=== PATIENT | male | born 1950 | race Caucasian/White ===

== ENCOUNTER 2017-01-04 17:15 | Emergency (ER) | payer BC ==
[2017-01-04 17:46] LABS: BASO % 0.8 % (0-6); EOS % 5.1 % (0-6); GRAN % 56.4 % (47-80); HEMATOCRIT 41.5 % (42.0-52.0); HEMOGLOBIN 13.4 gm/dl (14.0-18.0); LYMPH % 26.6 % (16-45); MEAN CELL VOLUME 89.8 fl (81-97); MEAN CORPUSCULAR HGB CONC 32.3 g/dl (32-36); MEAN PLATELET VOLUME 11.1 fl (7.4-10.4); MONO % 11.1 % (0-9); PLATELET COUNT 250 K/uL (130-400); RED BLOOD COUNT 4.62 M/uL (4.40-5.70); RED CELL DISTRIBUTION WIDTH 13.7 % (11.5-14.5); WHITE BLOOD COUNT W/O DIFF 7.2 K/uL (4.2-12.2)
[2017-01-04 17:58] LABS: ANION GAP 7.4 (7-16); BLOOD UREA NITROGEN 17 mg/dL (9-20); CARBON DIOXIDE 24.6 mmol/L (22-30); EST GLOMERULAR FILTRATION RATE > 60 ml/min; GLUCOSE,RANDOM 86 mg/dL (70-110)
--- NOTE | 2017-01-04 18:07 | Emergency Department Record ---
History of Present Illness - General Chief Complaint: Trauma Stated Complaint: TRAUMA LAC Time Seen by Provider: 01/04/17 17:24 Source: Patient Mode of Arrival: Wheelchair Limitations: No limitations - History of Present Illness Initial Comments: pt was working on a garage door when the spring broke and snapped back hitting him in the lower l chest. pt is on blood thinner MD Complaint: Injury Onset/Timin -: Minutes(s) Location: Chest Consistency: Constant Context: Machine or Tool Related Injury Associated Symptoms: Denies other symptoms Treatments Prior to Arrival: Other - Related Data Home Medications Medication Instructions Recorded Confirmed Last Taken Albuterol Sulfate [Ventolin Hfa] 1 - 2 puff IH .EVERY 4-6 HRS PRN 01/04/1701/0401/04/17 Aspirin 325 mg PO DAILY 01/04/17 01/04/17 01/04/17 Atenolol [Tenormin] 50 mg PO DAILY 01/04/17 01/04/17 01/04/17 Atorvastatin Calcium [Lipitor] 20 mg PO DAILY 01/04/17 01/04/17 01/04/17 Bupropion HCl [Wellbutrin Xl] 150 mg PO DAILY 01/04/17 01/04/17 01/04/17 Clopidogrel Bisulfate [Plavix] 75 mg PO DAILY 01/04/17 01/04/17 01/04/17 Levothyroxine Sodium [Synthroid] 125 mcg PO DAILY 01/04/17 01/04/17 01/04/17 Mometasone/Formoterol [Dulera 200 8.8 gm IH ASDIR 01/04/17 01/04/17 01/04/17 Mcg/5 Mcg Inhaler] Quetiapine Fumarate [Seroquel] 100 mg PO QHS 01/04/17 01/04/17 01/03/17 Allergies Allergy/AdvReac Type Severity Reaction Status Date / Time No Known Drug Allergies Allergy Verified 01/04/17 17:38 Travel Screening - Travel/Exposure Within Last 30 Days Have you traveled within the last 30 days?: No - Travel/Exposure Within Last Year Have you traveled outside the [place] in the last year?: No - Additonal Travel Details Have you been exposed to anyone with a communicable illness?: No - Travel Symptoms Symptom Screening: None Review of Systems Reviewed: No additional complaints except as noted below Constitutional: Reports: As per HPI. Denies: Chills, Fever, Malaise, Night sweats, Weakness, Weight change Eyes: Reports: As per HPI. Denies: Eye discharge, Eye pain, Photophobia, Vision change ENT: Reports: As per HPI. Denies: Congestion, Dental pain, Ear pain, Epistaxis , Hearing loss, Throat pain Respiratory: Reports: As per HPI. Denies: Cough, Dyspnea, Hemoptysis, Stridor, Wheezes Cardiovascular: Reports: As per HPI. Denies: Arrhythmia, Chest pain, Dyspnea on exertion, Edema, Murmurs, Orthopnea, Palpitations, Paroxysmal nocturnal dyspnea, Rheumatic Fever, Syncope Endocrine: Reports: As per HPI. Denies: Fatigue, Heat or cold intolerance, Polydipsia, Polyuria Gastrointestinal: Reports: As per HPI. Denies: Abdominal pain, Constipation, Diarrhea, Hematemesis, Hematochezia, Melena, Nausea, Vomiting Genitourinary: Reports: As per HPI. Denies: Dysuria, Frequency, Hematuria, Incontinence, Retention, Testicular pain, Testicular mass, Urgency Musculoskeletal: Reports: As per HPI. Denies: Arthralgia, Back pain, Gout, Joint swelling, Myalgia, Neck pain Skin: Reports: As per HPI. Denies: Bruising, Change in color, Change in hair/ nails, Lesions, Pruritus, Rash Neurological: Reports: As per HPI. Denies: Abnormal gait, Confusion, Headache, Numbness, Paresthesias, Seizure, Tingling, Tremors, Vertigo, Weakness Psychiatric: Reports: As per HPI. Denies: Anxiety, Auditory hallucinations, Depression, Homicidal thoughts, Suicidal thoughts, Visual hallucinations Hematological/Lymphatic: Reports: As per HPI. Denies: Anemia, Blood Clots, Easy bleeding, Easy bruising, Swollen glands Past Medical History - SOCIAL HISTORY Smoking Status: Former smoker Alcohol Use: Heavy Alcohol Use Comment: 1-2 drinks daily Drug Use: None - RESPIRATORY Hx Respiratory Disorders: Yes Hx Asthma: Yes Hx COPD: Yes Hx of CPAP: Yes (does not use) - CARDIOVASCULAR Hx Cardio Disorders: Yes Hx Abnormal EKG: Yes Hx Cardiac Cath: Yes Hx Vascular Disease: Yes Comment:: 2- stents - NEURO Hx Neuro Disorders: No - GI Hx GI Disorders: Yes Hx of Polyps: Yes - Hx Genitourinary Disorders: No - ENDOCRINE Hx Endocrine Disorders: Yes Hx Thyroid Disease: Yes (hypo) - MUSCULOSKELETAL Hx Musculoskeletal Disorders: Yes Hx Arthritis: Yes (left wrist) - PSYCH Hx Psych Problems: Yes Hx Anxiety: Yes - HEMATOLOGY/ONCOLOGY Hx Hematology/Oncology Disorders: No Family Medical History Any Significant Family History?: No Physical Exam - General General Appearance: Alert, Oriented x3, Cooperative, Mild distress - Head Head exam: Normal inspection - Eye Eye exam: Normal appearance, PERRL, EOMI Pupils: Normal accommodation - ENT ENT exam: Normal exam, Mucous membranes moist, Normal external ear exam, Normal orophraynx Ear exam: Normal external inspection. negative: External canal tenderness Nasal Exam: Normal inspection. negative: Discharge, Sinus tenderness Mouth exam: Normal external inspection, Tongue normal Teeth exam: Normal inspection. negative: Dental caries Throat exam: Normal inspection. negative: Tonsillar erythema, Tonsillar exudate - Neck Neck exam: Normal inspection, Full ROM. negative: Tenderness - Respiratory Respiratory exam: Normal lung sounds bilaterally, Chest wall tenderness. negative: Respiratory distress - Cardiovascular Cardiovascular Exam: Regular rate, Normal rhythm, Normal heart sounds - GI/Abdominal GI/Abdominal exam: Soft, Normal bowel sounds. negative: Tenderness - Rectal Rectal exam: Deferred - exam: Deferred - Extremities Extremities exam: Normal inspection, Full ROM, Normal capillary refill. negative: Tenderness - Back Back exam: Reports: Normal inspection, Full ROM. Denies: Muscle spasm, Rash noted, Tenderness - Neurological Neurological exam: Alert, CN II-XII intact, Normal gait, Oriented X3 - Psychiatric Psychiatric exam: Normal affect, Normal mood - Skin Skin exam: Dry, Intact, Normal color, Warm Type of lesion: Laceration Distribution of rash: Chest Course Vital Signs 01/04/17 17:16 Temperature 98.6 F Pulse Rate 70 Respiratory 18 Rate Blood Pressure 114/98 Pulse Ox 99 Medical Decision Making - Data Complexity MDM Data: Labs Ordered and/or Reviewed, X-Ray Ordered and/or Reviewed - Lab Data Result diagrams: 01/04/17 17:15 01/04/17 17:15 Lab Results 01/04/17 01/04/17 Range/Units 17:15 17:15 WBC 7.2 (4.2-12.2) K/uL RBC 4.62 (4.40-5.70) M/uL Hgb 13.4 L (14.0-18.0) gm/dl Hct 41.5 L (42.0-52.0) % MCV 89.8 (81-97) fl MCH 29.0 (27-33) pg MCHC 32.3 (32-36) g/dl RDW 13.7 (11.5-14.5) % Plt Count 250 (130-400) K/uL MPV 11.1 H (7.4-10.4) fl Gran % 56.4 (47-80) % Lymphocytes % 26.6 (16-45) % Monocytes % 11.1 H (0-9) % Eosinophils % 5.1 (0-6) % Basophils % 0.8 (0-6) % Sodium 143 (136-145) mmol/L Potassium 3.9 (3.5-5.1) mmol/L Chloride 111 H (98-107) mmol/L Carbon Dioxide 24.6 (22-30) mmol/L Anion Gap 7.4 (7-16) BUN 17 (9-20) mg/dL Creatinine 1.0 (0.66-1.25) mg/dL Estimated GFR > 60 ml/min Random Glucose 86 (70-110) mg/dL Calcium 9.2 (8.5-10.1) mg/dL - Radiology Data Radiology results: Report reviewed, Image reviewed Disposition Disposition: Discharge Clinical Impression: Laceration of chest wall Qualifiers: Encounter type: initial encounter Laterality: left Qualified Code(s): S21.112A - Laceration without foreign body of left front wall of thorax without penetration into thoracic cavity, initial encounter Disposition: Home, Self-Care Condition: (1) Good Instructions: Laceration (ED), Care For Your Stitches (ED) Additional Instructions: follow up with family doctor. return sooner if worse. recheck tomorrow. sutures out in 12 days Forms: Patient Portal Access Laceration - Other - Time Out Informed consent:: Informed consent obtained Confirmed first & last name, , procedure, correct site?: Yes Start Date:: 01/04/17 Start Time:: 18:45 - Location Location of laceration:: Left Laceration located on:: Chest Length of laceration:: 6 Length of laceration:: cm Full Body: 1 - 6cm c shaped laceration into fatty tissue only. - Clean and Prep Laceration cleaning method:: Cleansed, Copious Irrigation Laceration cleaning agent:: Normal Saline, Shur Clens - Local Anesthetic Lidocaine used:: 1% with epi Lidocaine dose:: 2 mL - Medication Medicated for procedure?: No - Procedural Detail Foreign body in the wound?: No Undermining was preformed?: No Stent applied?: No [place] applied?: No Retention suture(s) applied?: No Skin suture pattern:: Interrupted Suture material/size:: 4-0: Nylon, 5-0: Nylon Number of skin sutures:: 12
--- NOTE | 2017-01-05 09:26 | CT SCAN REPORT ---
EXAM: CT SCAN CHEST W CONTRAST HISTORY: INJURY. TECHNIQUE: SEQUENTIAL AXIAL IMAGES WERE OBTAINED FROM THE THORACIC INLET THROUGH THE BILATERAL ADRENAL GLANDS AFTER INTRAVENOUS ADMINISTRATION OF 100 ML OF OMNIPAQUE-300 CONTRAST MATERIAL. FINDINGS: The mediastinal vasculature enhances normally. No mediastinal or hilar lymphadenopathy. There are a few subpleural nodular densities measuring 2 mm in maximal diameter. These are likely postinflammatory in nature. The sternum is intact. The thoracic spine is intact. No rib fracture deformity is appreciated. The clavicles appear intact. IMPRESSION: 1. NO INTRATHORACIC INJURY IS APPRECIATED. JOB NUMBER: [id number] MTDD
--- NOTE | 2017-01-05 09:52 | CT SCAN REPORT ---
EXAM: CT SCAN ABDOMEN/PELVIS W CONTRAST HISTORY: ABDOMINAL PAIN. TECHNIQUE: SEQUENTIAL AXIAL IMAGES WERE OBTAINED FROM THE DIAPHRAGMS THROUGH THE ISCHIAL RECTAL FOSSA AFTER INTRAVENOUS ADMINISTRATION OF 100 ML OF OMNIPAQUE -300 CONTRAST MATERIAL. FINDINGS: The visualized lung bases appear normal. The liver, gallbladder, pancreas, and spleen appear normal. The adrenal glands and kidneys appear normal. The small bowel appears normal. There is colonic diverticulosis. No evidence of diverticulitis. There is distention of the urinary bladder. The osseous structures appear normal. IMPRESSION: 1. NO ACUTE ABDOMINAL OR PELVIC DISEASE PROCESS. 2. COLONIC DIVERTICULOSIS WITHOUT EVIDENCE OF DIVERTICULITIS. JOB NUMBER: [id number] MTDD
== END 2017-01-04 19:40 | disposition home or self-care (01) ==
LOC: ER 17:15
DX: S21.112A Laceration without foreign body of left front wall of thorax without penetration into thoracic cavity, initial encounter (principal); R10.9 Unspecified abdominal pain; W22.8XXA Striking against or struck by other objects, initial encounter; Y92.008 Other place in unspecified non-institutional (private) residence as the place of occurrence of the external cause; Z79.02 Long term (current) use of antithrombotics/antiplatelets
CPT/HCPCS: 12032 ×2; 99284 ×2; 85025; 80048; 71260; 74177; Q9967

== ENCOUNTER 2017-01-05 14:24 | Emergency (ER) | payer BC ==
--- NOTE | 2017-01-05 14:59 | Emergency Department Record ---
History of Present Illness - General Chief Complaint: Wound, check Stated Complaint: RECHECK STITCHES Time Seen by Provider: 01/05/17 14:40 Source: Patient Mode of arrival: Ambulatory Limitations: No limitations - History of Present Illness Initial Comments: pt hit in chest w a garage door spring yesterday. here for recheck. no problems. no trina Complaint: Wound re-check Onset/Timin -: Days(s) Initial Visit For: Laceration Returns Today for: Wound recheck Symptoms Since Prior Visit: No new symptoms Associated Symptoms: None Treatments Prior to Arrival: Dressings - Related Data Home Medications Medication Instructions Recorded Confirmed Last Taken Albuterol Sulfate [Ventolin Hfa] 1 - 2 puff IH .EVERY 4-6 HRS PRN 01/04/1701/0501/04/17 Aspirin 325 mg PO DAILY 01/04/17 01/05/17 01/04/17 Atenolol [Tenormin] 50 mg PO DAILY 01/04/17 01/05/17 01/04/17 Atorvastatin Calcium [Lipitor] 20 mg PO DAILY 01/04/17 01/05/17 01/04/17 Bupropion HCl [Wellbutrin Xl] 150 mg PO DAILY 01/04/17 01/05/17 01/04/17 Clopidogrel Bisulfate [Plavix] 75 mg PO DAILY 01/04/17 01/05/17 01/04/17 Levothyroxine Sodium [Synthroid] 125 mcg PO DAILY 01/04/17 01/05/17 01/04/17 Mometasone/Formoterol [Dulera 200 8.8 gm IH ASDIR 01/04/17 01/05/17 01/04/17 Mcg/5 Mcg Inhaler] Quetiapine Fumarate [Seroquel] 100 mg PO QHS 01/04/17 01/05/17 01/03/17 Allergies Allergy/AdvReac Type Severity Reaction Status Date / Time No Known Drug Allergies Allergy Verified 01/05/17 14:33 Travel Screening - Travel/Exposure Within Last 30 Days Have you traveled within the last 30 days?: No Review of Systems Reviewed: No additional complaints except as noted below Constitutional: Reports: As per HPI. Denies: Chills, Fever, Malaise, Night sweats, Weakness, Weight change Eyes: Reports: As per HPI. Denies: Eye discharge, Eye pain, Photophobia, Vision change ENT: Reports: As per HPI. Denies: Congestion, Dental pain, Ear pain, Epistaxis , Hearing loss, Throat pain Respiratory: Reports: As per HPI. Denies: Cough, Dyspnea, Hemoptysis, Stridor, Wheezes Cardiovascular: Reports: As per HPI. Denies: Arrhythmia, Chest pain, Dyspnea on exertion, Edema, Murmurs, Orthopnea, Palpitations, Paroxysmal nocturnal dyspnea, Rheumatic Fever, Syncope Endocrine: Reports: As per HPI. Denies: Fatigue, Heat or cold intolerance, Polydipsia, Polyuria Gastrointestinal: Reports: As per HPI. Denies: Abdominal pain, Constipation, Diarrhea, Hematemesis, Hematochezia, Melena, Nausea, Vomiting Genitourinary: Reports: As per HPI. Denies: Dysuria, Frequency, Hematuria, Incontinence, Retention, Testicular pain, Testicular mass, Urgency Musculoskeletal: Reports: As per HPI. Denies: Arthralgia, Back pain, Gout, Joint swelling, Myalgia, Neck pain Skin: Reports: As per HPI. Denies: Bruising, Change in color, Change in hair/ nails, Lesions, Pruritus, Rash Neurological: Reports: As per HPI. Denies: Abnormal gait, Confusion, Headache, Numbness, Paresthesias, Seizure, Tingling, Tremors, Vertigo, Weakness Psychiatric: Reports: As per HPI. Denies: Anxiety, Auditory hallucinations, Depression, Homicidal thoughts, Suicidal thoughts, Visual hallucinations Hematological/Lymphatic: Reports: As per HPI. Denies: Anemia, Blood Clots, Easy bleeding, Easy bruising, Swollen glands Past Medical History - SOCIAL HISTORY Smoking Status: Former smoker Alcohol Use: None Drug Use: None - RESPIRATORY Hx Respiratory Disorders: Yes Hx Asthma: Yes Hx COPD: Yes Hx of CPAP: Yes (does not use) - CARDIOVASCULAR Hx Cardio Disorders: Yes Hx Abnormal EKG: Yes Hx Cardiac Cath: Yes Hx Vascular Disease: Yes Comment:: 2- stents - NEURO Hx Neuro Disorders: No - GI Hx GI Disorders: Yes Hx of Polyps: Yes - Hx Genitourinary Disorders: No - ENDOCRINE Hx Endocrine Disorders: Yes Hx Thyroid Disease: Yes (hypo) - MUSCULOSKELETAL Hx Musculoskeletal Disorders: Yes Hx Arthritis: Yes (left wrist) - PSYCH Hx Psych Problems: Yes Hx Anxiety: Yes - HEMATOLOGY/ONCOLOGY Hx Hematology/Oncology Disorders: No Family Medical History Any Significant Family History?: No Physical Exam - General General Appearance: Alert, Oriented x3, Cooperative, Mild distress - Head Head exam: Normal inspection - Eye Eye exam: Normal appearance, PERRL, EOMI Pupils: Normal accommodation - ENT ENT exam: Normal exam, Mucous membranes moist, Normal external ear exam, Normal orophraynx Ear exam: Normal external inspection. negative: External canal tenderness Nasal Exam: Normal inspection. negative: Discharge, Sinus tenderness Mouth exam: Normal external inspection, Tongue normal Teeth exam: Normal inspection. negative: Dental caries Throat exam: Normal inspection. negative: Tonsillar erythema, Tonsillar exudate - Neck Neck exam: Normal inspection, Full ROM. negative: Tenderness - Respiratory Respiratory exam: Normal lung sounds bilaterally. negative: Respiratory distress - Cardiovascular Cardiovascular Exam: Regular rate, Normal rhythm, Normal heart sounds - GI/Abdominal GI/Abdominal exam: Soft, Normal bowel sounds. negative: Tenderness - Rectal Rectal exam: Deferred - exam: Deferred - Extremities Extremities exam: Normal inspection, Full ROM, Normal capillary refill. negative: Tenderness - Back Back exam: Reports: Normal inspection, Full ROM. Denies: Muscle spasm, Rash noted, Tenderness - Neurological Neurological exam: Alert, CN II-XII intact, Normal gait, Oriented X3 - Psychiatric Psychiatric exam: Normal affect, Normal mood - Skin Skin exam: Dry, Intact, Normal color, Warm Type of lesion: Laceration Distribution of rash: Chest (w surrounding ecchymosis, tender, no drainage or evidence of infection) Course Vital Signs 01/05/17 14:29 Temperature 98.0 F Pulse Rate 64 Respiratory 18 Rate Blood Pressure 130/76 Pulse Ox 99 Disposition Disposition: Discharge Clinical Impression: Encounter for wound re-check Disposition: Home, Self-Care Condition: (1) Good Instructions: Wound Healing and Your Diet (ED) Additional Instructions: follow up with family doctor. return sooner if worse Forms: Patient Portal Access
== END 2017-01-05 15:03 | disposition home or self-care (01) ==
LOC: ER 14:24
DX: Z48.01 Encounter for change or removal of surgical wound dressing (principal)
CPT/HCPCS: 99281

== ENCOUNTER 2017-01-16 10:09 | Emergency (ER) | payer BC ==
--- NOTE | 2017-01-16 10:48 | Emergency Department Record ---
History of Present Illness - General Chief Complaint: Suture removal Stated Complaint: SUTURE REMOVAL Time Seen by Provider: 01/16/17 10:41 Source: Patient, RN notes reviewed - History of Present Illness Initial Comments: suture removal and they were in 12 days and they may open up and steristrips applied Onset/Timin -: Days(s) Initial Visit For: Laceration Returns Today for: Staple/stitch removal Symptoms Since Prior Visit: No new symptoms Associated Symptoms: None - Related Data Home Medications Medication Instructions Recorded Confirmed Last Taken Albuterol Sulfate [Ventolin Hfa] 1 - 2 puff IH .EVERY 4-6 HRS PRN 01/04/1701/16 1 Day Ago ~01/15/17 Aspirin 325 mg PO DAILY 01/04/17 01/16/17 1 Day Ago ~01/15/17 Atenolol [Tenormin] 50 mg PO DAILY 01/04/17 01/16/17 1 Day Ago ~01/15/17 Atorvastatin Calcium [Lipitor] 20 mg PO DAILY 01/04/17 01/16/17 1 Day Ago ~01/15/17 Bupropion HCl [Wellbutrin Xl] 150 mg PO DAILY 01/04/17 01/16/17 1 Day Ago ~01/15/17 Clopidogrel Bisulfate [Plavix] 75 mg PO DAILY 01/04/17 01/16/17 1 Day Ago ~01/15/17 Levothyroxine Sodium [Synthroid] 125 mcg PO DAILY 01/04/17 01/16/17 1 Day Ago ~01/15/17 Mometasone/Formoterol [Dulera 200 8.8 gm IH ASDIR 01/04/17 01/16/17 1 Day Ago Mcg/5 Mcg Inhaler] ~01/15/17 Quetiapine Fumarate [Seroquel] 100 mg PO QHS 01/04/17 01/16/17 1 Day Ago ~01/15/17 Allergies Allergy/AdvReac Type Severity Reaction Status Date / Time No Known Drug Allergies Allergy Verified 01/16/17 10:29 Travel Screening - Travel/Exposure Within Last 30 Days Have you traveled within the last 30 days?: No - Travel/Exposure Within Last Year Have you traveled outside the [place] in the last year?: No - Additonal Travel Details Have you been exposed to anyone with a communicable illness?: No - Travel Symptoms Symptom Screening: None Review of Systems Reviewed: No additional complaints except as noted below Constitutional: Reports: As per HPI. Denies: Chills, Fever, Malaise, Night sweats, Weakness, Weight change Eyes: Reports: As per HPI. Denies: Eye discharge, Eye pain, Photophobia, Vision change ENT: Reports: As per HPI. Denies: Congestion, Dental pain, Ear pain, Epistaxis , Hearing loss, Throat pain Respiratory: Reports: As per HPI. Denies: Cough, Dyspnea, Hemoptysis, Stridor, Wheezes Cardiovascular: Reports: As per HPI. Denies: Arrhythmia, Chest pain, Dyspnea on exertion, Edema, Murmurs, Orthopnea, Palpitations, Paroxysmal nocturnal dyspnea, Rheumatic Fever, Syncope Endocrine: Reports: As per HPI. Denies: Fatigue, Heat or cold intolerance, Polydipsia, Polyuria Gastrointestinal: Reports: As per HPI. Denies: Abdominal pain, Constipation, Diarrhea, Hematemesis, Hematochezia, Melena, Nausea, Vomiting Genitourinary: Reports: As per HPI. Denies: Dysuria, Frequency, Hematuria, Incontinence, Retention, Testicular pain, Testicular mass, Urgency Musculoskeletal: Reports: As per HPI. Denies: Arthralgia, Back pain, Gout, Joint swelling, Myalgia, Neck pain Skin: Reports: As per HPI. Denies: Bruising, Change in color, Change in hair/ nails, Lesions, Pruritus, Rash Neurological: Reports: As per HPI. Denies: Abnormal gait, Confusion, Headache, Numbness, Paresthesias, Seizure, Tingling, Tremors, Vertigo, Weakness Psychiatric: Reports: As per HPI. Denies: Anxiety, Auditory hallucinations, Depression, Homicidal thoughts, Suicidal thoughts, Visual hallucinations Hematological/Lymphatic: Reports: As per HPI. Denies: Anemia, Blood Clots, Easy bleeding, Easy bruising, Swollen glands Past Medical History - SOCIAL HISTORY Smoking Status: Former smoker Alcohol Use: None Drug Use: None - RESPIRATORY Hx Respiratory Disorders: Yes Hx Asthma: Yes Hx COPD: Yes Hx of CPAP: Yes (does not use) - CARDIOVASCULAR Hx Cardio Disorders: Yes Hx Abnormal EKG: Yes Hx Cardiac Cath: Yes Hx Vascular Disease: Yes Comment:: 2- stents - NEURO Hx Neuro Disorders: No - GI Hx GI Disorders: Yes Hx of Polyps: Yes - Hx Genitourinary Disorders: No - ENDOCRINE Hx Endocrine Disorders: Yes Hx Thyroid Disease: Yes (hypo) - MUSCULOSKELETAL Hx Musculoskeletal Disorders: Yes Hx Arthritis: Yes (left wrist) - PSYCH Hx Psych Problems: Yes Hx Anxiety: Yes - HEMATOLOGY/ONCOLOGY Hx Hematology/Oncology Disorders: No Family Medical History Any Significant Family History?: Yes Physical Exam - General General Appearance: Alert, Oriented x3, Cooperative, No acute distress - Head Head exam: Normal inspection - Eye Eye exam: Normal appearance, PERRL Pupils: Normal accommodation - ENT ENT exam: Normal exam, Mucous membranes moist, Normal external ear exam, Normal orophraynx, TM's normal bilaterally Ear exam: Normal external inspection. negative: External canal tenderness Nasal Exam: Normal inspection. negative: Discharge, Sinus tenderness Mouth exam: Normal external inspection, Tongue normal Teeth exam: Normal inspection. negative: Dental caries Throat exam: Normal inspection. negative: Tonsillar erythema, Tonsillar exudate - Neck Neck exam: Normal inspection, Full ROM. negative: Tenderness - Respiratory Respiratory exam: Normal lung sounds bilaterally. negative: Respiratory distress - Cardiovascular Cardiovascular Exam: Regular rate, Normal rhythm, Normal heart sounds - GI/Abdominal GI/Abdominal exam: Soft, Normal bowel sounds. negative: Tenderness - Rectal Rectal exam: Deferred - exam: Deferred - Extremities Extremities exam: Normal inspection, Full ROM, Normal capillary refill. negative: Tenderness - Back Back exam: Reports: Normal inspection, Full ROM. Denies: Muscle spasm, Rash noted, Tenderness - Neurological Neurological exam: Alert, Normal gait, Oriented X3, Reflexes normal - Psychiatric Psychiatric exam: Normal affect, Normal mood - Skin Skin exam: Dry, Intact, Normal color, Warm Course Vital Signs 01/16/17 10:23 Temperature 98.0 F Pulse Rate 52 L Respiratory 16 Rate Blood Pressure 138/68 Pulse Ox 97 suture remova without problems Disposition Clinical Impression: Visit for suture removal Disposition: Home, Self-Care Condition: (1) Good Instructions: Stitches Removal (ED) Additional Instructions: wound care and allow steri stips to fall off. follow up with family Forms: Patient Portal Access Time of Disposition: 10:47
== END 2017-01-16 10:56 | disposition home or self-care (01) ==
LOC: ER 10:09
DX: Z48.02 Encounter for removal of sutures (principal)